=== PATIENT | female | born 1980 ===

== ENCOUNTER 2017-07-03 23:13 | Inpatient (IN) | payer OTHER ==
--- NOTE | 2017-07-04 00:26 | HP ---
General Information - General Information Maternal Age: 37 Grav: 1 Para: 0 SAB: 0 IEA: 0 Estimated Due Date: 06/23/17 Determined By: LMP Gestational Age in Weeks and Days: 41 Weeks and 3 Days Maternal Blood Type and Rh: B Negative - Results this Serology/RPR Result: Non-Reactive Rubella Result: Immune HBsAg Result: Negative HIV Result: Negative GBS Culture Result: Negative Past Medical History Delivery History: Hx Uncomplicated Vaginal Delivery Pertinent Past Medical History: Non-Contributory Past Medical History Comment: Environmental allergies Pertinent Past Surgical History: None Pertinent Family History: See Records - Antepartal Records Antepartal Records: Reviewed, Complicated by: - age 37 at delivery, normal NIPT. Hypothyroidism, now on replacement. polyhydramnios Review of Systems Constitutional: Comfortable CV Complaint: No Respiratory: Shortness of Breath: No Gastrointestinal: No Nausea/Vomiting Genitourinary: Leaking Fluid Musculoskeletal: Contractions - irregular Neurological: No Headache, No Visual Changes Movement: Normal Exam Allergies/Adverse Reactions: Allergies No Known Allergies Allergy (Verified 07/03/17 23:58) Lab Values - Entire Visit: Laboratory Tests 07/03/17 23:35 Vag Amniotic Fld Detect Positive - Measurements Height: 5 ft 1 in Weight: 144 lb Weight in lbs: 144 Body Mass Index (BMI): 27.1 Pre- Weight: 111 lb Weight Gained This : 33 lbs and 0 ozs - Exam Abdomen: No Upper Quadrant Pain Breast: - - soft, no masses Extremities: Edema - trace Heart: Normal Rhythm/Heart Sounds HEENT: No Significant Findings Lungs: Clear Bilaterally Reflexes: DTR 2+ Thyroid: No Thyromegaly - Ultrasound/Biophysical Profile Ultrasound Status: Not Done Targeted Exam Findings See L&D Outpatient Visit Provider Note for Findings: N/A Cervical Exam: 4cm Effacement: 80% Station: -2 Presenting Part: Vertex Membrane Status: Bulging Amniotic Fluid Evaluation: Positive ROM Plus EFM Findings - External Monitor Findings Baseline Heart Rate: 120 External Monitor Findings: Accelerations Present, No Pattern of Variable or Late Decelerations, Variability Moderate External Monitor Findings Comment: category 1 Contractions: Mild, 45-90 Seconds Contraction Frequency: every 2-3 Assessment/Plan - Reason for Visit Reason for Visit: leaking fluid, early labor - Obstetrical Risk Factors Obstetrical Risk Factors: Post-Dates Risk Factors Comment: borderline polyhydramnios - Plan Plan: Early Labor Plan Comment: will observe for now, pitocin augmentation prn
[2017-07-04] MEDS ORDERED: Ammonia Inhalant* 1 EA AMP ONE (06:11)
[2017-07-04] MEDS ORDERED: Levothyroxine TAB* 25 MCG TAB ONE (07:37)
[2017-07-04] MEDS ORDERED: Oxytocin in LR* 20 UNITS/1,000 ML BAG IVPB ONE (14:21)
[2017-07-04] MEDS ORDERED: Oxytocin in LR* 20 UNITS/1,000 ML BAG IVPB SCH (15:00)
[2017-07-04] MEDS ORDERED: NS 0.9% 50 ML* 50 ML with ceFOXitin(*) 2 GM IVPB ONE ×2 (15:55)
[2017-07-04] MEDS ORDERED: Glycerin ADULT SUPP PR PRN (16:10)
[2017-07-04] MEDS ORDERED: Sodium Citrate/Citric Acid* 15 ML UDC ONE (16:10)
[2017-07-04] MEDS ORDERED: KETAMINE HCL* 50 MG/ML 10 ML VIAL ONE (16:10)
[2017-07-04] MEDS ORDERED: Midazolam* 1 MG/ML 5 ML VIAL (5 MG) ONE (16:10)
[2017-07-04] MEDS ORDERED: Witch Hazel PAD* JAR TOPICAL PRN (16:10)
[2017-07-04] MEDS ORDERED: oxyCODONE/Acetamin 5/325 MG* TAB PO PRN ×3 (16:10→16:49)
[2017-07-04] MEDS ORDERED: Morphine PF AMP (0.5MG/ML)* 5 MG/10 ML AMP ONE (16:10)
[2017-07-04] MEDS ORDERED: fentaNYL* 50 MCG/ML 2 ML VIAL (100 MCG VIAL) ONE (16:10)
[2017-07-04] MEDS ORDERED: Famotidine IV* 10 MG/ML 2 ML (20 mg) ONE (16:15)
[2017-07-04] MEDS ORDERED: Naloxone* 0.4 MG/ML 1 ML VIAL IV PRN ×2 (16:49→16:51)
[2017-07-04] MEDS ORDERED: Nalbuphine* 20 MG/ML 1 ML VIAL IV PRN (16:49)
[2017-07-04] MEDS ORDERED: DiMENhydriNATE IV* 50 MG/ML VIAL IV PUSH PRN (16:49)
[2017-07-04] MEDS ORDERED: Naloxone* 2 MG in NS 0.9% 250 ML* 250 ML IV PRN (16:49)
[2017-07-04] MEDS ORDERED: PROCHLORPERAZINE INJ 5 MG/ML 2 ML VIAL IV PRN (16:49)
[2017-07-04] MEDS ORDERED: diPHENhydraMINE IV* 50 MG/ML 1 ml VIAL (BENADRYL) IV PRN (16:49)
[2017-07-04] MEDS ORDERED: fentaNYL* 50 MCG/ML 2 ML VIAL (100 MCG VIAL) IV PRN (16:51)
[2017-07-04 17:00] LABS: ABS Basophils 0 10^3/ul (0-0.2); ABS Eosinophils 0 10^3/ul (0-0.6); ABS Lymphocytes 0.9 10^3/ul (1.0-4.8); ABS Monocytes 0.6 10^3/ul (0-0.8); ABS Neutrophils 19.7 10^3/ul (1.5-7.7); ABS Nucleated RBC 0 10^3/ul; Eosinophil % 0 % (0-6); Hematocrit 42 % (35-47); Hemoglobin 14.3 g/dl (12.0-16.0); Lymphocyte % 4.2 % (25-47); Mean Corpuscular HGB Conc 34 g/dl (31-36); Mean Corpuscular Hemoglobin 32 pg (27-31); Mean Corpuscular Volume 96 fL (80-97); Mean Platelet Volume 9.7 um3 (7.4-10.4); Nucleated Red Blood Cells % 0.1; Platelet Count 112 10^3/ul (150-450); Red Blood Count 4.43 10^6/ul (4.0-5.4); Red Cell Distribution Width 14 % (10.5-15); White Blood Count 21.2 10^3/ul (3.5-10.8)
[2017-07-04] MEDS ORDERED: Ibuprofen TAB* 600 MG PO SCH (17:00)
[2017-07-04] MEDS ORDERED: Lidocaine 2% PF* 10 ML AMP ONE (17:28)
[2017-07-04] MEDS ORDERED: Scopolamine 1.5 mg* PATCH ONE (17:28)
[2017-07-04] MEDS ORDERED: Bupivacaine-MPF SPINAL* 7.5 MG/2 ML AMP ONE (17:28)
[2017-07-04] MEDS ORDERED: PROCHLORPERAZINE INJ 5 MG/ML 2 ML VIAL ONE (17:29)
[2017-07-04] MEDS ORDERED: Ketorolac INJ* 30 MG/ML 1 ML VIAL ONE (17:29)
[2017-07-04] MEDS ORDERED: EPHEDrine (Pressors)* 50 MG/ML VIAL ONE (17:29)
[2017-07-04] MEDS ORDERED: Phenylephrine IV* 40 MCG/ML 10 ML SYRINGE ONE (17:29)
[2017-07-04] MEDS ORDERED: Dexamethasone IV* 4 MG/ML 1 ML (4 MG) ONE (17:29)
[2017-07-04] MEDS ORDERED: OXYTOCIN* 10 UNITS/ML 1 ML VIAL ONE (17:30)
[2017-07-04] MEDS: Ibuprofen TAB* 600 MG PO SCH (21:18)
[2017-07-04] MEDS: Simethicone TAB* 80 MG TAB.CHEW PO SCH ×2 (22:11→23:48)
--- NOTE | 2017-07-04 23:10 | OP ---
DATE OF OPERATION: 07/04/17 - ROOM #115 DATE OF : 76 SURGEON: Blanca Pena MD ASSISTANTS: Dr. Casey and Lorraine Tamez CNM ANESTHESIOLOGIST: Dr. Choen. ANESTHESIA: Spinal. PRE-OP DIAGNOSIS: 41 plus 4 weeks gestation with arrest of dilation and face presentation. POST-OP DIAGNOSIS: 41 plus 4 weeks gestation with arrest of dilation and face presentation. OPERATIVE PROCEDURE: Primary low-transverse section. ESTIMATED BLOOD LOSS: 800 cc. URINE OUTPUT: 300 cc. IV FLUIDS: 3000 cc lactated Ringer's. MATERIALS TO LAB: Cord blood. INDICATIONS: This patient was a 37-year-old 2, para 1, followed in the office by the indoor plant technician service. The patient presented with spontaneous rupture of membranes last night and progressed in labor to about 8 cm dilation. At that point, she did not have any further descent despite augmentation of her labor. On cervical evaluation, I noted that the presenting part was irregular, consistent with facial features. Considering there had been no cervical change for nearly 6 hours and there was clearly a malpresentation, the decision was made to proceed with section. There were intermittent variable decelerations during the patient's labor, but they were not persistent. The patient was extensively counseled and consent was signed. FINDINGS: Normal-appearing uterus, fallopian tubes, and ovaries. Delivery was productive of a 7-pound 10-ounce male with Apgars of 9 and 9. Time delivery was 1652. appeared to be in a transverse facial position. COMPLICATIONS: None. DESCRIPTION OF PROCEDURE: The risks, benefits, and alternatives were described to the patient and informed consent was obtained. The patient was taken to the operating room with IV running where spinal anesthesia was induced and found to be adequate. The patient was prepped and draped in the normal sterile fashion in the dorsal supine position with leftward tilt. A Pfannenstiel skin incision was made with a scalpel and this was carried down to the underlying fascia sharply. The fascia was then scored in the midline with the scalpel. The incision was extended using Mendoza scissors. The rectus muscles were dissected off the rectus fascia using blunt and sharp dissection. The rectus muscles were in the midline bluntly. The peritoneum was also entered bluntly. A bladder blade was placed. A bladder flap was created sharply using Metzenbaum scissors. A low transverse uterine incision was made with the scalpel. This was carried down to the amniotic cavity which was productive scant meconium stained fluid. The incision was extended with blunt traction. The 's ear was the first visible part. The head was elevated to the level of the incision without difficulty and delivered through the incision. With fundal pressure, the shoulders and body delivered without difficulty. The had good tone and cried immediately on delivery. The cord was doubly clamped and cut. The was then handed to the awaiting api product manager. Cord blood was collected. The placenta then delivered with manual extraction. The uterus was then exteriorized and cleared of all clots and debris. The uterine incision was reapproximated using 0 Polysorb in a running-locked fashion. A second layer of imbricating sutures of 0 Polysorb was also placed with good hemostasis. And additional stitch of 0 Polysorb was placed to control left uterine branch bleeding. The posterior cul-de-sac was irrigated with saline. The uterus was then returned to the abdomen, and the incision was reinspected and noted to be hemostatic. The peritoneum was closed with 3-0 Polysorb in a running fashion. The fascia was closed with 0 Polysorb in a running fashion. Subcutaneous tissues were cleaned with saline and made hemostatic with the Bovie. The skin was then closed with 4-0 Monocryl in a subcuticular stitch. Mastisol and Steri-Strips were placed over the incision which was then covered with a sterile bandage. The patient tolerated the procedure well. Sponge, lap, and needle counts were correct x2. [id number]/[facility] #: [id number] [facility]
[2017-07-04] MEDS: Docusate CAP* 100 MG PO SCH (23:47)
[2017-07-05] MEDS: Ibuprofen TAB* 600 MG PO SCH ×7 (05:35→23:40)
[2017-07-05 07:18] LABS: Hematocrit 33 % (35-47); Hemoglobin 11.6 g/dl (12.0-16.0); Mean Corpuscular HGB Conc 35 g/dl (31-36); Mean Corpuscular Hemoglobin 33 pg (27-31); Mean Corpuscular Volume 94 fL (80-97); Mean Platelet Volume 9.6 um3 (7.4-10.4); Platelet Count 118 10^3/ul (150-450); Red Blood Count 3.48 10^6/ul (4.0-5.4); Red Cell Distribution Width 14 % (10.5-15); White Blood Count 19.9 10^3/ul (3.5-10.8)
[2017-07-05] MEDS ORDERED: oxyCODONE/Acetamin 5/325 MG* TAB PO PRN ×2 (08:30)
[2017-07-05 08:46] LABS: ABS Basophils 0.1 10^3/ul (0-0.2); ABS Eosinophils 0 10^3/ul (0-0.6); ABS Lymphocytes 1.7 10^3/ul (1.0-4.8); ABS Monocytes 1.6 10^3/ul (0-0.8); ABS Neutrophils 16.6 10^3/ul (1.5-7.7); ABS Nucleated RBC 0 10^3/ul; Eosinophil % 0.1 % (0-6); Lymphocyte % 8.4 % (25-47); Nucleated Red Blood Cells % 0
[2017-07-05] MEDS ORDERED: Ferrous Gluconate TAB* 324 MG TAB PO SCH (09:00)
[2017-07-05] MEDS: Docusate CAP* 100 MG PO SCH ×3 (09:31→20:50)
[2017-07-05] MEDS: Simethicone TAB* 80 MG TAB.CHEW PO SCH ×4 (09:31→20:50)
[2017-07-05] MEDS ORDERED: RHO D Immune Globulin (HUMAN)* 300 MCG = 1,500 I.U. INJ IM ONE ×2 (16:45→17:00)
[2017-07-06] MEDS: Ibuprofen TAB* 600 MG PO SCH ×3 (05:39→18:05)
[2017-07-06] MEDS: Docusate CAP* 100 MG PO SCH ×3 (08:52→20:13)
[2017-07-06] MEDS: Simethicone TAB* 80 MG TAB.CHEW PO SCH ×4 (08:52→20:13)
[2017-07-07] MEDS: Ibuprofen TAB* 600 MG PO SCH ×3 (00:13→11:44)
[2017-07-07 08:31] VITALS: BP 102/56
[2017-07-07] MEDS: Simethicone TAB* 80 MG TAB.CHEW PO SCH (09:08)
[2017-07-07] MEDS: Docusate CAP* 100 MG PO SCH (09:08)
[2017-07-07] MEDS ORDERED: Scopolamine PATCH Remove* 1 NOTE MISC PATCH OFF SCH (17:00)
== END 2017-07-07 12:57 | disposition home or self-care (01) | DRG 765 ==
LOC: MCHOBOUT 23:13 → MCHOB 23:52
PROVIDERS: ADMIT Midwife; ATTEND Obstetrics & Gynecology
PROC: 4A1HXCZ Monitoring of Products of Conception, Cardiac Rate, External Approach (ICD-10-PCS; 2017-07-04)
PROC: 10907ZC Drainage of Amniotic Fluid, Therapeutic from Products of Conception, Via Natural or Artificial Opening (ICD-10-PCS; 2017-07-04)
PROC: 10D00Z1 Extraction of Products of Conception, Low, Open Approach (ICD-10-PCS; principal; 2017-07-04 16:21)
DX: O32.3XX0 Maternal care for face, brow and chin presentation, not applicable or unspecified (principal); O40.3XX0 Polyhydramnios, third trimester, not applicable or unspecified; O48.0 Post-term pregnancy; Z37.0 Single live birth; Z3A.41 41 weeks gestation of pregnancy; O99.284 Endocrine, nutritional and metabolic diseases complicating childbirth; E03.9 Hypothyroidism, unspecified; O77.0 Labor and delivery complicated by meconium in amniotic fluid; O76 Abnormality in fetal heart rate and rhythm complicating labor and delivery; O62.1 Secondary uterine inertia
CPT/HCPCS: 36415; 84112; 85025; 85461; 86850; 86870; 86880; 86900; 86901; A9270-GY; J0694; J0780; J1100; J1885; J2001; J2250; J2590; J2790; J3010